=== PATIENT | male | born 2000 | race Caucasian/White ===

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

== ENCOUNTER → 2019-04-12 11:33 | Outpatient (CLI) | payer OTHER, SELFPAY ==
[2014-01-23 20:15] VITALS: BMI 25.7
--- NOTE | 2019-04-12 11:42 | RAD_ITS ---
HISTORY: sinusitis ADDITIONAL HISTORY: None provided. TECHNIQUE: Paranasal sinuses 3 views FINDINGS: AIR-FLUID LEVELS: None. MUCOPERIOSTEAL THICKENING: None. BONES AND SOFT TISSUES: Unremarkable. RAD/Sinuses min 3 Views IMPRESSION: No radiographic evidence of acute sinusitis. at 2224 Reported and signed by: Re Crenshaw MD Electronically Signed: Re Crenshaw MD at 22:24 EST Tel , Service support ,
== END ==
PROVIDERS: PCP Family Medicine; Referring Provider Family Medicine; Visit Provider Family Medicine
DX: J32.9 Chronic sinusitis, unspecified (principal)
CPT/HCPCS: 70220

== ENCOUNTER → 2022-02-12 | Outpatient (CLI) | payer OTHER, SELFPAY ==
[2022-02-12 17:56] LABS: Absolute Lymphocyte Count 2.13 X10^3/uL (0.83-4.51); Absolute Neutrophil Count 3.7 X10^3/uL (2.0-7.7); Basophil# 0.05 X10^3/uL; Basophil% 0.8 % (0-1); Hematocrit 47.7 % (40-54); Hemoglobin 15.9 g/dL (13.0-16.5); Lymphocyte # 2.13 X10^3/ul (0.83-4.51); Lymphocyte % 32.2 % (19-41); Mean Corp Hgb Conc 33.3 g/dL (32-36); Mean Corpuscular Hgb 29.9 pg (27.0-32.0); Mean Corpuscular Volume 89.8 fL (80-94); Mean Platelet Vol. 11.2 fl (6.2-12.0); Monocyte# 0.46 X10^3/uL; NRBC Flagged by Analyzer 0 % (0-5); Neutrophil # 3.73 X10^3/uL (2.7-7.7); Neutrophil % 56.4 % (47-70); Platelet Count 284 K/mm3 (150-450); RBC Distribution Width CV 12.5 % (11.6-14.6); RBC Distribution Width SD 41.3 fl (35.1-43.9); Red Blood Count 5.31 M/mm3 (4.6-6.2); White Blood Count 6.6 K/mm3 (4.4-11.0)
[2022-02-12 19:08] LABS: ALB/GLOB Ratio 1.2 RATIO (0.9-2.4); AST(SGOT) 29 U/L (15-37); Alanine Aminotransfer ALT/SGPT 76 U/L (16-61); Alkaline Phosphatase 46 U/L (45-117); Anion Gap 8 (5-15); BUN 14 mg/dL (7-18); BUN/Creat Ratio 14.7 RATIO (10-20); Calcium,Total 8.9 mg/dL (8.5-10.1); Chloride 109 mmol/L (98-107); Creatinine, Serum 0.96 mg/dL (0.70-1.30); EST Glomerular Filtration Rate 103 mL/min (>60); Est Glom Filt Rate - Afr Amer 125 mL/min (>60); Globulin 3.3 g/dL (2.2-4.2); Glucose 91 mg/dL (74-106); Potassium 4.5 mmol/L (3.5-5.1); Protein, Total 7.3 g/dL (6.4-8.2); Sodium Level 142 mmol/L (136-145); Thyroid Stim Hormone (TSH) 1.22 uIU/mL (0.358-3.74)
== END | disposition home or self-care (01) ==
LOC: MFPLAB 14:36
PROVIDERS: PCP Family Medicine; Visit Provider Family Medicine
DX: F32.A Depression, unspecified (principal); K62.5 Hemorrhage of anus and rectum
CPT/HCPCS: 36415; 80053; 84443; 85025

== ENCOUNTER → 2022-02-28 | Outpatient (CLI) | payer OTHER, SELFPAY ==
[2022-02-28 18:10] LABS: Absolute Neutrophil Count 3.8 X10^3/uL (2.0-7.7); Basophil# 0.06 X10^3/uL; Basophil% 0.8 % (0-1); Eosinophil# 0.22 X10^3/uL; Hematocrit 46.8 % (40-54); Hemoglobin 15.3 g/dL (13.0-16.5); Lymphocyte % 37.1 % (19-41); Mean Corp Hgb Conc 32.7 g/dL (32-36); Mean Corpuscular Hgb 29.4 pg (27.0-32.0); Mean Corpuscular Volume 89.8 fL (80-94); Mean Platelet Vol. 11.5 fl (6.2-12.0); Monocyte# 0.44 X10^3/uL; NRBC Flagged by Analyzer 0 % (0-5); Neutrophil # 3.84 X10^3/uL (2.7-7.7); Neutrophil % 52.8 % (47-70); Platelet Count 306 K/mm3 (150-450); RBC Distribution Width CV 12.5 % (11.6-14.6); RBC Distribution Width SD 41.6 fl (35.1-43.9); Red Blood Count 5.21 M/mm3 (4.6-6.2); White Blood Count 7.3 K/mm3 (4.4-11.0)
[2022-02-28 18:34] LABS: ALB/GLOB Ratio 1.5 RATIO (0.9-2.4); AST(SGOT) 24 U/L (15-37); Alanine Aminotransfer ALT/SGPT 44 U/L (16-61); Albumin, Serum 4.5 g/dL (3.2-5.0); Alkaline Phosphatase 47 U/L (45-117); Anion Gap 7 (5-15); BUN 13 mg/dL (7-18); Calcium,Total 9.3 mg/dL (8.5-10.1); Chloride 107 mmol/L (98-107); EST Glomerular Filtration Rate 98 mL/min (>60); Est Glom Filt Rate - Afr Amer 119 mL/min (>60); Glucose 89 mg/dL (74-106); Potassium 4.3 mmol/L (3.5-5.1); Protein, Total 7.5 g/dL (6.4-8.2); Sodium Level 140 mmol/L (136-145); Thyroid Stim Hormone (TSH) 2.47 uIU/mL (0.358-3.74)
== END | disposition home or self-care (01) ==
LOC: MFPLAB 15:07
PROVIDERS: PCP Family Medicine; Referring Provider Family Medicine; Visit Provider Family Medicine
DX: K62.5 Hemorrhage of anus and rectum (principal); F32.A Depression, unspecified
CPT/HCPCS: 36415; 80053; 84443; 85025

== ENCOUNTER → 2022-03-07 | Outpatient (CLI) | payer OTHER, SELFPAY ==
[2022-03-07 18:07] LABS: Vitamin D,25 Hydroxy 20.8 ng/mL
== END | disposition home or self-care (01) ==
LOC: MFPLAB 17:01
PROVIDERS: PCP Family Medicine; Referring Provider Family Medicine; Visit Provider Family Medicine
DX: F32.A Depression, unspecified (principal)
CPT/HCPCS: 36415; 82306; 84403

== ENCOUNTER → 2022-05-21 | Outpatient (CLI) | payer OTHER, SELFPAY ==
[2022-05-21 17:02] LABS: Hemoglobin A1c 5.4 % (3.8-5.6)
[2022-05-21 17:03] LABS: Erythrocyte Sedimentation Rate 8 mm/hr (0-20)
[2022-05-21 17:25] LABS: Vitamin B12 327 pg/mL (211-911); Vitamin D,25 Hydroxy 43.6 ng/mL
[2022-05-21 17:48] LABS: CRP < 2.90 mg/L (0.0-3.0); Free T3 3.4 pg/mL (2.18-3.98); T4 Free Direct 1.02 ng/dL (0.76-1.46); Thyroid Stim Hormone (TSH) 1.26 uIU/mL (0.358-3.74)
[2022-05-25 00:06] LABS: Anti-Centromere B Ab <0.2 AI (0.0-0.9); Anti-Chromatin <0.2 AI (0.0-0.9); Anti-Jo <0.2 AI (0.0-0.9); Anti-Scleroderma-70 AB <0.2 AI (0.0-0.9); Beef <0.10 kU/L (Class 0); Clam <0.10 kU/L (Class 0); Codfish <0.10 kU/L (Class 0); Corn <0.10 kU/L (Class 0); Egg, White <0.10 kU/L (Class 0); Egg, Whole <0.10 kU/L (Class 0); Milk (Cow) <0.10 kU/L (Class 0); Peanut <0.10 kU/L (Class 0); Pork <0.10 kU/L (Class 0); RNP Ab <0.2 AI (0.0-0.9); SCALLOP <0.10 kU/L (Class 0); SESAME SEED <0.10 kU/L (Class 0); SJOGREN'S Anti-SS-A test < 0.2 AI (0.0-0.9); SJOGREN'S Anti-SS-B test < 0.2 AI (0.0-0.9); Shrimp <0.10 kU/L (Class 0); Smith Ab <0.2 AI (0.0-0.9); Soybean <0.10 kU/L (Class 0); Vitamin D 1,25-Dihydroxy 34.8 pg/mL (24.8-81.5); Walnut, (Food) <0.10 kU/L (Class 0); Wheat <0.10 kU/L (Class 0)
[2022-05-25 08:30] LABS: Anti-dsDNA Ab 1 IU/mL (0-9); Chocolate <0.10 kU/L (Class 0)
[2022-05-25 14:07] LABS: Albumin 4.2 g/dL (2.9-4.4); Alpha-1-Globulins 0.2 g/dL (0.0-0.4); Alpha-2-Globulins 0.6 g/dL (0.4-1.0); Cytoplasmic Ab (C-ANCA) <1:20 titer (Neg:<1:20); Gamma Globulin 1.3 g/dL (0.4-1.8); Immunoglobulin A 230 mg/dL (90-386); Immunoglobulin G 1115 mg/dL (603-1613); Immunoglobulin M 242 mg/dL (20-172); PROEL- TOTAL PROTEIN 7.2 g/dL (6.0-8.5)
[2022-05-26 15:12] LABS: Immunoglobulin E < 2 IU/mL (6-495); Perinuclear Ab (P-ANCA) <1:20 titer (Neg:<1:20)
== END | disposition home or self-care (01) ==
PROVIDERS: PCP Family Medicine; Referring Provider Internal Medicine Gastroenterology; Visit Provider Internal Medicine Gastroenterology
DX: R19.7 Diarrhea, unspecified (principal)
CPT/HCPCS: 36415; 82306; 82607; 82652; 82784; 82785; 83036; 84165; 84439; 84443; 84481; 85652; 86003; 86005; 86140; 86225; 86235; 86256; 86334

== ENCOUNTER → 2022-05-28 | Outpatient (CLI) | payer OTHER, SELFPAY ==
[2022-06-02 16:09] LABS: Calprotectin, Stool <16 ug/g (0-120)
[2022-06-13 00:06] LABS: Giardia Lamblia, Stool EIA Negative (Negative); H. PYLORI STOOL AG Negative (Negative); Pancreatic Elastase, Fecal > 500 (>200)
== END | disposition home or self-care (01) ==
PROVIDERS: PCP Family Medicine; Referring Provider Internal Medicine Gastroenterology; Visit Provider Internal Medicine Gastroenterology
DX: R19.7 Diarrhea, unspecified (principal); K58.0 Irritable bowel syndrome with diarrhea
CPT/HCPCS: 82274; 82653; 83630; 83993; 87329; 87338; 87493; 87506

== ENCOUNTER 2022-06-04 05:46 | Day surgery (SDC) | payer OTHER, SELFPAY ==
[2022-06-04] MEDS: Lactated Ringers 1,000 ML 15 ML IV (05:50)
[2022-06-04 06:10] VITALS: BP 157/81; PULSE 91; RESP 17; TEMP 37.2; O2SAT 95; BMI 33.4
--- NOTE | 2022-06-04 06:30 | IMM_PTH ---
PATIENT: DOTTY ROBLEDO LOC: EN U#:[id number] AGE/SX: 21/M ROOM: RE06/04/[address]: Dr. Fredo Garza DO : 2000 BED: DIS: 06/04/2022 SPEC #: [id number] RECD: 06/04/22 12:08 STATUS: TOYA REChristie #: [id number] GREGORY: 06/04/22 06:[address]: Fredo Garza DEPT: IMMUNOHISTOCHEMISTRY RECD BY: Ilene Edmonds ENTERED: 06/04/22 12:09 SP TYPE: IMMUNO OTHR DR: Dr. Veronica Amaro MD Tissues: B - Stomach, NOS Procedures: H Pylori (initial) PHYSICIAN & INSTITUTION [place] [address] SPECIMEN INFORMATION: Tissue Source: B - Antrum Clinical Info: Diarrhea Specimen Number: [id number] CPT code: 31850 METHODOLOGY: Deparaffinized sections of prefer/formalin-fixed tissue or PAP/DQ stained slides are incubated with monoclonal/polyclonal antibodies/oligonucleotide probes. Localization is made via biotin free immunoperoxidase method. Appropriate controls are performed and reacted as expected. Results on target cell population are indicated in the following table: RESULTS: ANTIBODY / CLONE RESULT Block B H Pylori (polyclonal) negative These tests were developed and their performance characteristics determined by [facility]. They may not have been cleared or approved by the U.S. Food and Drug Administration. The FDA has determined that such clearance or approval is not necessary. The above immunohistochemical/dualISH markers are ordered and reviewed by the Pathologist. INTERPRETATION: B. Antrum, biopsy: Negative for Helicobacter pylori organisms. SJ:izabel 06/05/2022
--- NOTE | 2022-06-04 06:30 | EGD_PTH ---
PATIENT: DOTTY ROBLEDO LOC: EN U#:[id number] AGE/SX: 21/M ROOM: RE06/04/[address]: Dr. Fredo Garza DO : 2000 BED: DIS: 06/04/2022 SPEC #: [id number] RECD: 06/04/22 10:50 STATUS: TOYA BAKARI #: [id number] GREGORY: 06/04/22 06:[address]: Fredo Garza DEPT: SURGICAL PATHOLOGY RECD BY: Dilcia Pabon ENTERED: 06/04/22 12:25 SP TYPE: EGD BIOPSY [facility] DR: Dr. Veronica Amaro MD Tissues: A - Duodenum, NOS B - Gastric mucous membrane C - Esophagus, NOS D - Ileum, NOS E - COLON BIOPSY Procedures: Surgery Specimen Level IV HEADER OPERATION: Colonoscopy, EGD ([facility] [place]), biopsy PRE-OP DIAGNOSIS: Diarrhea TISSUE SUBMITTED: A ? Duodenum biopsy, B ? Antrum biopsy for histo and H. pylori, C ? Distal esophagus biopsy, D ? Terminal ileum biopsy, E ? Random colonic biopsy MICROSCOPIC DIAGNOSIS A. Duodenum, biopsy: Fragments of duodenal mucosa, no pathologic diagnosis. B. Antrum, biopsy: Minimal gastritis See microscopic description and comment. C. Distal esophagus, biopsy: Fragments of gastroesophageal mucosa with chronic inflammation. Intestinal metaplasia (goblet cell metaplasia) not identified. See comment. D. Terminal ileum, biopsy: Fragments of small intestinal mucosa, no pathologic diagnosis. E. Colon, random biopsy: Fragments of colonic mucosa, no pathologic diagnosis. SJ:izabel 06/05/2022 COMMENT B. The results of immunohistochemistry for Helicobacter pylori will be reported separately ([id number]). C. Alcian blue/PAS stain with matched control is used in the evaluation of the specimen. MICROSCOPIC DESCRIPTION Slides are reviewed. B. The specimen shows fragments of gastric mucosa with chronic inflammatory cell infiltrates in the lamina propria consisting of lymphocytes and plasma cells, consistent with minimal chronic gastritis. GROSS DESCRIPTION A - Received in fixative is one container labeled with the patient's name and designated duodenum biopsy. The specimen consists of two irregular fragments of light partida soft tissue that in aggregate measure 1.0 x 0.5 x 0.1 cm. The specimen is totally submitted in one cassette. B - Received in fixative is one container labeled with the patient's name and designated antrum biopsy. The specimen consists of multiple irregular fragments of light partida soft tissue that in aggregate measure 1.0 x 0.5 x 0.1 cm. The specimen is totally submitted in one cassette. C - Received in fixative is one container labeled with the patient's name and designated distal esophagus. The specimen consists of multiple irregular fragments of light partida soft tissue that in aggregate measure 1.0 x 0.5 x 0.1 cm. The specimen is totally submitted in one cassette. D - Received in fixative is one container labeled with the patient's name and designated terminal ileum. The specimen consists of multiple irregular fragments of light partida soft tissue that in aggregate measure 1.0 x 0.5 x 0.1 cm. The specimen is totally submitted in one cassette. E - Received in fixative is one container labeled with the patient's name and designated random colon biopsy. The specimen consists of multiple irregular fragments of light partida soft tissue that in aggregate measure 1.0 x 1.0 x 0.1 cm. The specimen is totally submitted in one cassette. / AM:izabel 06/04/2022 TC:3 CPT: 74845 x5, 41913
--- NOTE | 2022-06-04 06:35 | HP.PCM_ITS ---
History and Physical Date of Admission: 06/04/22 21 M who presents to the office today to establish care. Pt became known to this clinic 05.21.22 by referral from PCP. Referred for painless rectal bleeding. Has tried dicyclomine in the past. Pt reports having digestive issues for a number of years now. Abdominal pain, bloating, urgent diarrhea after meals. Has bright red blood when wiping periodically. Some dark spots in stool. Feels there is a rock in his stomach after he eats that is relieved with a bowel movement. PMH includes obesity ROS Const Constitutional: Positive for fatigue ENT ENT: No difficulty swallowing Gastro GI: Positive for bloating, change in bowel habits, diarrhea, heartburn and Blood in stool; No abdominal pain, belching, change in stool character, coffee ground emesis, constipation, cramping, difficulty swallowing, feeling full early, excessive flatus, incontinent of stools, Vomiting blood/hematemesis, loose stools, Black,tarry stools, nausea/dyspepsia, pain with swallowing, vomiting or other Musc Musculoskeletal: No joint pain Skin Skin: No yellowing of the eye or itchy eyes Psych Psychiatric: No anxiety and Positive for depression Endo Endocrine: Positive for fatigue Aller/Imm Allergy/Immunologic: No itchy eyes Ernesto/Lymp Hematologic/Lymphatic: No easy bleeding or easy bruising Exam Const General: cooperative and comfortable Nutritional Appearance: average body habitus and well nourished [facility] Head: normal to inspection Ears: hearing grossly normal bilaterally Nose: external nose normal Face and sinus: normal facial exam Mouth: oral mucosae normal Throat: posterior oropharynx normal Eyes General: appearance normal, both eyes and all related structures Neck Neck: normal visual inspection Chest Chest palpation & inspection: normal inspection of the chest and normal palpation of entire chest wall Resp Effort & Inspection: normal respiratory effort Auscultation: Bilateral: Clear to Auscultation Cardio Palpation: normal PMI Rate: regular rate Rhythm: regular rhythm GI Inspection: normal to inspection Auscultation: normal bowel sounds Percussion: normal to percussion Palpation: no hepatosplenomegaly Skin General: no rashes or lesions noted Neuro General: patient alert Extrem General: normal to inspection Psych Affect: normal affect Quality Reporting Tobacco Screening ([facility]) Smoking Status: Never smoker Assessment and Plan Assessment and Plan (1) Diarrhea: ?Status:?Acute ?Plan: The differential diagnosis for his diarrhea does include osmotic diarrhea versus secretory diarrhea.? It seems that this is more of a osmotic diarrhea at this point because of his symptoms.? He has not had any nocturnal symptoms.? He is not having any weight loss.? He has had some weight gain.? He does complain of some, oily stools and frequent wiping.? He has no history of hemorrhoidal disease.? He does not take any narcotic agents in order to evacuate his bowels on a daily basis.? He did have a formed stool but has been about 8 years since he had a completely formed stool.? We will do biochemical testing for inflammatory bowel disease along with stool testing to look for signs of malabsorption diseases.? Once we have stool testing and biochemical work-up we will be better informed regarding the need for possible endoscopic procedures in the future.? Likely he should get a baseline image such as a CT scan abdomen pelvis once we get all the work-up back. ? ? ? Orders: Orders ANCA Today R19.7 - Diarrhea, unspecified ? Immunoglobulin E Today R19.7 - Diarrhea, unspecified ? Miscellaneous Lab Procedure Today R19.7 - Diarrhea, unspecified ? Vitamin D,25 Hydroxy Today R19.7 - Diarrhea, unspecified ? Vitamin B12 Today R19.7 - Diarrhea, unspecified ? CRP Today R19.7 - Diarrhea, unspecified ? Free T3 Today R19.7 - Diarrhea, unspecified ? T4 Free Direct Today R19.7 - Diarrhea, unspecified ? Thyroid Stim Hormone (TSH) Today R19.7 - Diarrhea, unspecified ? Erythrocyte Sed Rate Today R19.7 - Diarrhea, unspecified ? ALON Comprehensive Panel Today R19.7 - Diarrhea, unspecified ? Calprotectin, Stool Today R19.7 - Diarrhea, unspecified ? Vitamin D 1,25-Dihydroxy Today R19.7 - Diarrhea, unspecified ? Stool Lactoferrin/WBC Today K58.9 - Irritable bowel syndrome without diarrhea, R19.7 - Diarrhea, unspecified ? Giardia Lamblia, Stool EIA Today R19.7 - Diarrhea, unspecified ? MALACHI + Protein Elect, Serum Today R19.7 - Diarrhea, unspecified ? Hemoglobin A1c Today R19.7 - Diarrhea, unspecified ? Allergen, Rast Food Profile Today R19.7 - Diarrhea, unspecified ? Allergen, Food Profile Today R19.7 - Diarrhea, unspecified ? Pancreatic Elastase, Fecal Today R19.7 - Diarrhea, unspecified ? CDIFF (PCR) Today R19.7 - Diarrhea, unspecified ? ENTERIC PATHOGEN PANEL STOOL Today K58.9 - Irritable bowel syndrome without diarrhea, R19.7 - Diarrhea, unspecified ? Stool Occult Blood iFOB Today R19.7 - Diarrhea, unspecified ? H. PYLORI STOOL AG Today R19.7 - Diarrhea, unspecified ? I have examined the patient and the H&P has been reviewed. There are no clinical changes since date of exam.
[2022-06-04 07:05] VITALS: BP 137/70; BP 157/81; PULSE 73; RESP 16; TEMP 36.6; O2SAT 96
--- NOTE | 2022-06-04 07:08 | OP.EGD_ITS ---
Patient Name: Wally Putnam Procedure Date: 06/04/2022 6:23 AM Date of : 2000 Age: 21 Procedure: Upper GI endoscopy Indications: Epigastric abdominal pain, Functional Dyspepsia, Suspected esophageal reflux Providers: Fredo Garza DO Referring MD: Veronica Amaro Medicines: Monitored Anesthesia Care Patient Profile: This is a 21 year old male. Refer to note in patient chart for documentation of history and physical. Patient has symptoms of chronic abdominal cramping, chronic global abdominal pain, chronic dyspepsia and chronic heartburn. Complications: No immediate complications. Procedure: Pre-Anesthesia Assessment: - Prior to the procedure, a History and Physical was performed, and patient medications and allergies were reviewed. The risks and benefits of the procedure and the sedation options and risks were discussed with the patient. All questions were answered and informed consent was obtained. Patient identification and proposed procedure were verified by the physician. Mental Status Examination: normal. Prophylactic Antibiotics: The patient does not require prophylactic antibiotics. Prior Anticoagulants: The patient has taken no previous anticoagulant or antiplatelet agents. After reviewing the risks and benefits, the patient was deemed in satisfactory condition to undergo the procedure. The anesthesia plan was to use monitored anesthesia care (MAC). Immediately prior to administration of medications, the patient was re-assessed for adequacy to receive sedatives. The heart rate, respiratory rate, oxygen saturations, blood pressure, adequacy of pulmonary ventilation, and response to care were monitored throughout the procedure. The physical status of the patient was re-assessed after the procedure. After obtaining informed consent, the endoscope was passed under direct vision. Throughout the procedure, the patient's blood pressure, pulse, and oxygen saturations were monitored continuously. The Colonoscope was introduced through the mouth, and advanced to the second part of duodenum. The upper GI endoscopy was accomplished without difficulty. The patient tolerated the procedure well. Scope In: 6:40:15 AM Scope Out: 6:45:48 AM Total Procedure Duration Time 0 hours 5 minutes 33 seconds Findings: LA Grade B (one or more mucosal breaks greater than 5 mm, not extending between the tops of two mucosal folds) esophagitis with no bleeding was found 40 to 42 cm from the incisors. Biopsies were taken with a cold forceps for histology. Verification of patient identification for the specimen was done. Estimated blood loss was minimal. Patchy minimal inflammation characterized by congestion (edema) was found in the gastric body and in the gastric antrum. Biopsies were taken with a cold forceps for histology. Verification of patient identification for the specimen was done. Estimated blood loss was minimal. Patchy mildly erythematous mucosa without active bleeding and with no stigmata of bleeding was found in the duodenal bulb, in the first portion of the duodenum and in the second portion of the duodenum. Biopsies were taken with a cold forceps for histology. Verification of patient identification for the specimen was done. Estimated blood loss was minimal. Impression: - LA Grade B reflux esophagitis. Biopsied. - Bile gastritis. Biopsied. - Erythematous duodenopathy. Biopsied. Recommendation: - Discharge patient to home. - Resume previous diet. - Continue present medications. - Await pathology results. - Repeat upper endoscopy for surveillance. Procedure Code(s): --- Professional --- 74740, Esophagogastroduodenoscopy, flexible, transoral; with biopsy, single or multiple CPT copyright 2017 [employer]. All rights reserved. The codes documented in this report are preliminary and upon lathmaker review may be revised to meet current compliance requirements. Fredo Garza DO 06/04/2022 7:07:36 AM This report has been signed electronically. Number of Addenda: 0 Note Initiated On: 06/04/2022 6:23 AM
--- NOTE | 2022-06-04 07:08 | OP.CCLET_ITS ---
06/04/2022 Veronica Amaro [address] [place] [address] Re : Upper GI endoscopy procedure for Wally [facility] Dear Dr. Amaro This procedure was performed on Saturday, June 04, 2022. My impressions and recommendations are as follows: Impressions : - LA Grade B reflux esophagitis. Biopsied. - Bile gastritis. Biopsied. - Erythematous duodenopathy. Biopsied. Recommendations : - Discharge patient to home. - Resume previous diet. - Continue present medications. - Await pathology results. - Repeat upper endoscopy for surveillance. My findings are described in the full procedure note, which is enclosed. If I can be of further assistance, please feel free to contact me at . Sincerely, Fredo Garza, 06/04/2022 7:07:36 AM This report has been signed electronically.
[2022-06-04 07:10] VITALS: BP 124/75; BP 157/81; PULSE 76; RESP 16; O2SAT 98
[2022-06-04 07:15] VITALS: BP 126/73; BP 157/81; PULSE 71; RESP 16; O2SAT 97
--- NOTE | 2022-06-04 07:15 | OP.CCLET_ITS ---
06/04/2022 Veronica Amaro [address] [place] [address] Re : Colonoscopy procedure for Wally [facility] Dear Dr. Amaro This procedure was performed on Saturday, June 04, 2022. My impressions and recommendations are as follows: Impressions : - Congested mucosa in the transverse colon, at the hepatic flexure and in the ascending colon. Biopsied. - Congested mucosa in the terminal ileum. Biopsied. Recommendations : - Discharge patient to home. - Resume previous diet. - Continue present medications. - Await pathology results. - Repeat colonoscopy in 5 years for surveillance. My findings are described in the full procedure note, which is enclosed. If I can be of further assistance, please feel free to contact me at . Sincerely, Fredo Garza, 06/04/2022 7:14:46 AM This report has been signed electronically.
--- NOTE | 2022-06-04 07:15 | OP.COLON_ITS ---
Patient Name: Wally Putnam Procedure Date: 06/04/2022 6:46 AM Date of : 2000 Age: 21 Procedure: Colonoscopy Indications: Clinically significant diarrhea of unexplained origin Providers: Fredo Garza DO Referring MD: Veronica Amaro Medicines: Monitored Anesthesia Care Patient Profile: This is a 21 year old male. Refer to note in patient chart for documentation of history and physical. Patient has symptoms of chronic abdominal cramping, chronic global abdominal pain, chronic dyspepsia and chronic heartburn. Last Colonoscopy: none. The patient's first colonoscopy is today. Complications: No immediate complications. Procedure: Pre-Anesthesia Assessment: - Prior to the procedure, a History and Physical was performed, and patient medications and allergies were reviewed. The risks and benefits of the procedure and the sedation options and risks were discussed with the patient. All questions were answered and informed consent was obtained. Patient identification and proposed procedure were verified by the physician. Mental Status Examination: normal. Prophylactic Antibiotics: The patient does not require prophylactic antibiotics. Prior Anticoagulants: The patient has taken no previous anticoagulant or antiplatelet agents. After reviewing the risks and benefits, the patient was deemed in satisfactory condition to undergo the procedure. The anesthesia plan was to use monitored anesthesia care (MAC). Immediately prior to administration of medications, the patient was re-assessed for adequacy to receive sedatives. The heart rate, respiratory rate, oxygen saturations, blood pressure, adequacy of pulmonary ventilation, and response to care were monitored throughout the procedure. The physical status of the patient was re-assessed after the procedure. After I obtained informed consent, the scope was passed under direct vision. Throughout the procedure, the patient's blood pressure, pulse, and oxygen saturations were monitored continuously. The Colonoscope was introduced through the anus and advanced to the terminal ileum. The colonoscopy was performed without difficulty. The patient tolerated the procedure well. The quality of the bowel preparation was good. Scope In: 6:48:06 AM Scope Withdrawal Time 0 hours 7 minutes 55 seconds Scope Out: 6:58:20 AM Total Procedure Duration Time 0 hours 10 minutes 14 seconds Findings: The perianal and digital rectal examinations were normal. An area of mildly congested mucosa was found in the transverse colon, at the hepatic flexure and in the ascending colon. Biopsies were taken with a cold forceps for histology. Verification of patient identification for the specimen was done. Estimated blood loss was minimal. A localized area of the terminal ileum was congested. Biopsies were taken with a cold forceps for histology. Verification of patient identification for the specimen was done. Estimated blood loss was minimal. Impression: - Congested mucosa in the transverse colon, at the hepatic flexure and in the ascending colon. Biopsied. - Congested mucosa in the terminal ileum. Biopsied. Recommendation: - Discharge patient to home. - Resume previous diet. - Continue present medications. - Await pathology results. - Repeat colonoscopy in 5 years for surveillance. Procedure Code(s): --- Professional --- 77625, Colonoscopy, flexible; with biopsy, single or multiple CPT copyright 2017 [employer]. All rights reserved. The codes documented in this report are preliminary and upon administrative and program specialist review may be revised to meet current compliance requirements. Fredo Garza DO 06/04/2022 7:14:46 AM This report has been signed electronically. Number of Addenda: 0 Note Initiated On: 06/04/2022 6:46 AM
[2022-06-04 07:20] VITALS: BP 129/68; BP 157/81; PULSE 66; RESP 16; TEMP 36.9; O2SAT 100
[2022-06-04 07:44] VITALS: BP 157/81
== END 2022-06-04 07:57 | disposition home or self-care (01) ==
LOC: EN 05:46 → AC 05:47
PROVIDERS: PCP Family Medicine; Referring Provider Family Medicine; Visit Provider Internal Medicine Gastroenterology
PROC: 0DJD8ZZ Inspection of Lower Intestinal Tract, Via Natural or Artificial Opening Endoscopic (ICD-10-PCS; CPT 45378; principal; 2022-06-04 06:25)
DX: K29.70 Gastritis, unspecified, without bleeding (principal); K31.89 Other diseases of stomach and duodenum; K21.00 Gastro-esophageal reflux disease with esophagitis, without bleeding; R19.7 Diarrhea, unspecified; K63.89 Other specified diseases of intestine; E66.9 Obesity, unspecified; Z68.33 Body mass index [BMI] 33.0-33.9, adult
CPT/HCPCS: 45380; 43239; 88305; 88342; J7120; J2405

== ENCOUNTER → 2022-09-24 | Outpatient (CLI) | payer OTHER, SELFPAY ==
--- NOTE | 2022-09-24 09:29 | MRI_ITS ---
MR Enterography Abdomen/Pelvis WO/W Contrast 09/24/2022 11:02 AM COMPARISON: None available. CLINICAL HISTORY: R19.7 - Diarrhea, unspecified TECHNIQUE: Following oral administration of enteric contrast and administration of glucagon, multiplanar T1 and T2 weighted images along with dynamic post-gadolinium images were obtained through the abdomen and pelvis. FINDINGS: GI Tract: Several short segment loops of porximal small bowel and colon demonstrate mild circumferential wall thickening and mucosal hyperenhancement. No stricture, fistula, or obstruction. No drainable fluid collections. Liver: Unremarkable Gallbladder: Unremarkable Spleen: Unremarkable Pancreas: Unremarkable Adrenal Glands: Unremarkable Kidneys: Unremarkable Bladder: Unremarkable Reproductive: Unremarkable Lymphadenopathy: Absent Ascites: Absent Bones: No suspicious lesions MRI/Enterography Abd/Pel IMPRESSION: Findings consistent with inflammatory bowel disease, such as Chron''s disease. No stricture, fistula, or obstruction. No drainable fluid collections. Electronically Signed: Star Phillip MD at 19:32 EDT ,
[2022-09-24 10:01] VITALS: BP 127/75; PULSE 80; RESP 16; TEMP 36.3; O2SAT 97; BMI 31.6
[2022-09-24] MEDS: Glucagon 1 MG/ML Syringe IV (11:21)
[2022-09-24] MEDS: 0.9% Saline Lock 10 ML Syringe IV (11:22)
[2022-09-24 11:37] VITALS: BP 146/97; PULSE 82; RESP 16; O2SAT 98
== END | disposition home or self-care (01) ==
LOC: MRI 09:20
PROVIDERS: PCP Family Medicine; Referring Provider Internal Medicine Gastroenterology; Visit Provider Internal Medicine Gastroenterology
DX: R19.7 Diarrhea, unspecified (principal)
CPT/HCPCS: 74183; 96374; A9575; A4216; J1610